=== PATIENT | male | born 1970 | race Caucasian/White ===

== ENCOUNTER 2018-08-23 00:36 | Emergency (ER) | payer SELFPAY ==
--- NOTE | 2018-08-23 01:04 | ER Report ---
History and Physical Time Seen By MD: 01:03 Hx. of Stated Complaint: PATIENT REPORTS HURTING BACK WHILE BACKPACKING HPI/ROS CHIEF COMPLAINT: Low back pain HISTORY OF PRESENT ILLNESS: This is a 48-year-old male. He has been backpacking, on his way from [place] up to [facility]. While hiking out of [facility], margaret his back and now is having some muscle spasms and pain in the lumbar area. He does have a history of cervical spine degenerative disc disease but has never had low back problems. He is having normal bowel movements. He denies any trouble with urination. Pain does radiate into his upper thigh mainly on the right side but sometimes on the left as well. He denies any numbness in the legs or saddle area. He denies any weakness but does find it hard to move when the pain is severe or when he has been resting and then tries to move, finding that the back has stiffened up. Denies any fevers or chills. Does have a history of problems in the past with taking pain medication so prefers non-narcotic options. Allergies: Coded Allergies: vancomycin (Verified Allergy, Severe, 08/23/18) Home Meds Active Scripts Ketorolac Tromethamine (KETOROLAC TROMETHAMINE) 10 Mg Tab, 10 MG PO Q6H PRN for PAIN, #12 TAB 0 Refills Prov:CADEN BASILIO MD 08/23/18 Tizanidine Hcl (TIZANIDINE HCL) 4 Mg Tablet, 4 MG PO TID PRN for MUSCLE SPASMS, #20 TAB 0 Refills Prov:CADEN BASILIO MD 08/23/18 Reviewed Nurses Notes: Yes Constitutional Vital Sign - Last 24 Hours 08/23/18 08/23/18 08/23/18 08/23/18 00:36 00:40 00:42 01:00 Temp 98.0 Pulse ??? 100 Resp 15 B/P (MAP) 142/84 142/84 (103) 117/76 (90) Pulse Ox 94 O2 Delivery Room Air 08/23/18 08/23/18 08/23/18 08/23/18 01:06 01:36 02:00 02:06 Pulse 78 78 B/P (MAP) 106/74 (85) Pulse Ox 95 92 92 08/23/18 08/23/18 02:11 02:30 Pulse 77 B/P (MAP) 111/73 (86) Physical Exam General Appearance: Alert, no acute distress.[ ] Eyes: Pupils equal and round no injection. ENT: Normal oral mucosa. Moist mucous membranes. Respiratory: Lungs are clear to auscultation, breathing easily Cardiac: regular rate and rhythm Gastrointestinal: Abdomen is soft and nontender. Neuro: Negative straight leg raising. Normal sensation. Musculoskeletal: Some pain in the lower lumbar area. No pain in the legs with palpation. Skin: No rashes or lesions. DIFFERENTIAL DIAGNOSIS: After history and physical exam differential diagnosis was considered for patient with new onset low back pain that sounds like muscle spasming or muscle strain of the lumbar area, however never had x-rays of the low back so I will recommend doing this and we will go ahead and try treating with Toradol and some Zanaflex. Medical Decision Making EKG/Imaging Imaging INDICATION: Acute low back pain. EXAM DATE: 08/23/2018 1:09 AM COMPARISON: None. FINDINGS: 5 views of the lumbar spine. Mineralization is normal. No acute alignment abnormality or fracture. Mild multilevel discogenic degenerative disease. Facet arthropathy in the lower lumbar spine may result in mild neural foraminal narrowing. Soft tissues are unremarkable. IMPRESSION: Mild multilevel degenerative disease with no acute osseous abnormality of the lumbar spine. Report Dictated By: Fantasma Bethea MD at 08/23/2018 1:52 AM ED Course/Re-evaluation ED Course Patient had some good relief with the Toradol and Zanaflex. Imaging as noted above with degenerative disc disease. No red flag symptoms at this time and recommended what to watch for. He will continue use the Toradol and Zanaflex while he is backpacking up to [place]. Cautioned against sedation that can happen with muscle relaxers. Decision to Disposition Date: August 23, 2018 Decision to Disposition Time: 02:31 Depart Departure Latest Vital Signs Vital Signs Date Time Temp Pulse Resp B/P (MAP) Pulse Ox O2 Delivery O2 Flow Rate FiO2 08/23/18 02:30 111/73 (86) 08/23/18 02:11 77 08/23/18 02:06 92 08/23/18 00:40 98.0 15 Room Air Impression: Primary Impression: Lumbar strain Condition: Improved Disposition: HOME OR SELF-CARE New Scripts Ketorolac Tromethamine (KETOROLAC TROMETHAMINE) 10 Mg Tab 10 MG PO Q6H PRN for PAIN, #12 TAB 0 Refills Prov: CADEN BASILIO MD 08/23/18 Tizanidine Hcl (TIZANIDINE HCL) 4 Mg Tablet 4 MG PO TID PRN for MUSCLE SPASMS, #20 TAB 0 Refills Prov: CADEN BASILIO MD 08/23/18 Patient Instructions: Low Back Strain (ED) Additional Instructions: Take Toradol 10mg, one every 6 hours as needed for pain. Take Tizanidine 4mg, one every 8 hours as needed for spasm and pain. Increase fluid intake over the next 3 days. Problem Qualifiers Primary Impression: Lumbar strain Encounter type: initial encounter Qualified Codes: S39.012A - Strain of muscle, fascia and tendon of lower back, initial encounter CADEN BASILIO MD August 23, 2018 01:03
[2018-08-23] MEDS ORDERED: KETOROLAC TROM 10MG TAB PO ONE (01:10)
--- NOTE | 2018-08-23 01:59 | RADIOLOGY IMAGING REPORT ---
FACILITY: [facility] [place] PATIENT NAME: Serjio Potts : 1970 MR: [id number] V: [id number] EXAM DATE: ORDERING PHYSICIAN: CADEN BASILIO TECHNOLOGIST: Location: [facility] [place] Patient: Serjio Potts : 1970 Visit/Account:[id number] Date of Sevice: 08/23/2018 INDICATION: Acute low back pain. EXAM DATE: 08/23/2018 1:09 AM COMPARISON: None. FINDINGS: 5 views of the lumbar spine. Mineralization is normal. No acute alignment abnormality or fracture. M ild multilevel discogenic degenerative disease. Facet arthropathy in the lower lumbar spine may resu lt in mild neural foraminal narrowing. Soft tissues are unremarkable. IMPRESSION: Mild multilevel degenerative disease with no acute osseous abnormality of the lumbar spi ne. Report Dictated By: Fantasma Bethea MD at 08/23/2018 1:52 AM Report E-Signed By: Fantasma Bethea MD at 08/23/2018 1:55 AM WSN:[id number]
[2018-08-23 02:30] VITALS: BP 111/73
[2018-08-23] MEDS ORDERED: KETOROLAC TROM 10 MG TAB TH PO ONE (02:30)
[2018-08-23] MEDS ORDERED: TIZA-128 PO (02:32)
[2018-08-23] MEDS ORDERED: KET10 PO (02:32)
== END 2018-08-23 02:53 | disposition home or self-care (01) ==
LOC: ER 01:08
DX: S39.012A Strain of muscle, fascia and tendon of lower back, initial encounter (principal)
CPT/HCPCS: 72120; 99283